=== PATIENT | male | born 1945 | race Caucasian/White ===

== ENCOUNTER 2016-08-13 11:22 | Day surgery (SDC) | payer MEDICARE, OTHER ==
--- NOTE | ~2016-08-13 | EGD ---
EGD REPORT [facility] [address] [id number] NAME: JOSE HILL : [birth year] STATUS : REG [facility]#: [id number] AGE: 71 ADM/REG DATE : 08/13/16 MR#: [id number] REPORT SERV DATE: 08/13/16 DICTATED BY: ALICIA NARVAEZ DATE: 08/13/16 REPORT STATUS : Draft TRANSCRIBED BY: [facility] DATE: 08/13/16 [facility] Center Patient Name: Jose Hill Date of : 1945 Attending MD: ALICIA NARVAEZ, Procedure Date No Time: 08/13/2016 Procedure: Upper EUS Indications: Acute recurrent pancreatitis Referring MD: GURVINDER VALDOVINOS Medicines: Monitored Anesthesia Care Complications: No immediate complications. Estimated blood loss: None. Procedure: Pre-Anesthesia Assessment: - ASA Grade Assessment: III - A patient with severe systemic disease. After obtaining informed consent, the endoscope was passed under direct vision. Throughout the procedure, the patient's blood pressure, pulse, and oxygen saturations were monitored continuously. The Endoscope was introduced through the mouth, and advanced to the second part of duodenum. Findings: Endosonographic Finding : Pancreatic parenchymal abnormalities were noted in the entire pancreas. These consisted of diffuse echogenicity. The pancreatic duct had a normal endosonographic appearance in the pancreatic head. The pancreatic duct measured up to 2 mm in diameter. The pancreatic duct had a normal endosonographic appearance in the entire pancreas consistent with fatty infiltration. Endosonographic imaging of the pancreas showed no chronic pancreatitis, no cyst/pseudocyst, no mass and no pancreatic duct changes. There was no sign of significant endosonographic abnormality in the common bile duct. The duct measured 3 mm. An unremarkable gallbladder was identified. No lymphadenopathy seen. There was no sign of significant endosonographic abnormality in the examined duodenum. Endosonographic images of the stomach were unremarkable. There was no sign of significant endosonographic abnormality in the esophagus. Impression: - Pancreatic parenchymal abnormalities consisting of diffuse echogenicity were noted in the entire pancreas. - The pancreatic duct had a normal endosonographic appearance in the pancreatic head. The pancreatic duct EGD REPORT [id number] [place]. [address] NAME: JOSE HILL : [birth year] STATUS : REG [facility] PAT#: [id number] AGE: 71 ADM/REG DATE : 08/13/16 MR#: [id number] REPORT SERV DATE: 08/13/16 DICTATED BY: ALICIA NARVAEZ DATE: 08/13/16 REPORT STATUS : Draft TRANSCRIBED BY: [employer] DATE: 08/13/16 measured up to 2 mm in diameter. - The pancreatic duct had a normal endosonographic appearance in the entire pancreas. - There was no sign of significant pathology in the common bile duct. - There was no sign of significant pathology in the examined duodenum. - Endosonographic images of the stomach were unremarkable. - There was no sign of significant pathology in the esophagus. Recommendation: - Return to previous diet. - Continue present medications. - Return to referring physician. Procedure Code(s): --- Professional --- 30205, Esophagogastroduodenoscopy, flexible, transoral; with endoscopic ultrasound examination, including the esophagus, stomach, and either the duodenum or a surgically altered stomach where the jejunum is examined distal to the anastomosis Diagnosis Code(s): --- Professional --- K86.9, Disease of pancreas, unspecified K85.9, Acute pancreatitis, unspecified CPT copyright 2013 [employer]. All rights reserved. The codes documented in this report are preliminary and upon outpatient coder review may be revised to meet current compliance requirements. ALICIA SOLANGE, 08/13/2016 1:53 PM Number of Addenda: 0 Note Initiated On: 08/13/2016 1:35 PM Scope Withdrawal Time 0 hours 0 minutes 0 seconds [id number] [place] [id number]
[~2016-08-13 11:22] MED LIST: LIPITOR10 PO; LISINOPRIL40 MG PO; LOP25 PO; MOBIC15 MG PO; PRILO PO; PROSCAR5 PO; UROXATRAL PO
== END 2016-08-13 23:59 | disposition home or self-care (01) ==
LOC: DMU 11:22
PROVIDERS: Internal Medicine Gastroenterology
PROC: 0DJ08ZZ Inspection of Upper Intestinal Tract, Via Natural or Artificial Opening Endoscopic (ICD-10-PCS; principal; 2016-08-13 13:30)
DX: K85.90 Acute pancreatitis without necrosis or infection, unspecified (principal); K86.9 Disease of pancreas, unspecified; I10 Essential (primary) hypertension; G47.33 Obstructive sleep apnea (adult) (pediatric); K21.9 Gastro-esophageal reflux disease without esophagitis; E66.01 Morbid (severe) obesity due to excess calories; M19.90 Unspecified osteoarthritis, unspecified site; E78.5 Hyperlipidemia, unspecified; Z88.5 Allergy status to narcotic agent; Z79.899 Other long term (current) drug therapy; Z98.49 Cataract extraction status, unspecified eye; Z98.890 Other specified postprocedural states
CPT/HCPCS: C1725